=== PATIENT | male | born 1945 | race Hispanic/Latino ===

== ENCOUNTER → 2018-05-19 | Outpatient (CLI) | payer OTHER ==
--- NOTE | 2018-05-19 12:33 | Diagnostic Imaging Report ---
EXAMINATION: CHEST 2 VIEWS INDICATION: Dyspnea. COMPARISON: None FINDINGS: TUBES and LINES: None. LUNGS: Lungs are well inflated. Mild patchy bibasilar opacities. No evidence of pulmonary edema or lobar consolidation. PLEURA: No pleural effusion or pneumothorax. Mild biapical pleural-parenchymal opacity. HEART AND MEDIASTINUM: The cardiomediastinal silhouette is unremarkable. BONES AND SOFT TISSUES: No acute osseous abnormality. Degenerative changes of the visualized spine. UPPER ABDOMEN: No free air under the diaphragm. IMPRESSION: No acute radiographic abnormality. Mild patchy bibasilar opacities, likely atelectasis. Signed by: Dr. Gary Dunaway MD on 05/19/2018 12:29 PM
--- NOTE | 2018-05-19 16:20 | Diagnostic Imaging Report ---
EXAM: US ABDOMEN COMPLETE DATE: 05/19/2018 11:04 AM INDICATION: Abdominal distention COMPARISON: None FINDINGS: Grayscale and color flow Doppler ultrasound was performed. Liver: 13.5 cm span, no hepatomegaly. Mildly hyperechoic and heterogeneous parenchyma which may be seen with steatosis. No intrahepatic mass or bile duct dilatation. Main portal vein 0.7 cm, nondilated, normal hepatopetal flow. Spleen: 9.5 cm span, no splenomegaly. Biliary: No cholelithiasis or gallbladder wall thickening. There is echogenic material in the gallbladder compatible with biliary sludge. Sonographic Johnson sign negative. Common bile duct 0.3 cm, normal. Pancreas: Visualized portions show no mass or duct dilatation. Right kidney: 11.3 x 4.0 x 5.1 cm. No hydronephrosis or contour deforming mass. Normal cortical echogenicity. There is a 0.7 cm hyperechoic focus in the cortex of the mid kidney, likely representing a small cortical calcification or nonobstructing intrarenal calculus. Left kidney: 12.0 x 5.4 x 4.6 cm. No hydronephrosis or contour deforming mass. Normal cortical echogenicity. Vessels: Visualized portions of aorta and IVC unremarkable. Ascites: None IMPRESSION: 1. No cholelithiasis or evidence for cholecystitis. Mild biliary sludge is seen in the gallbladder. 2. No dilatation of the biliary tree. 3. Hepatic steatosis. 4. Small cortical calcification or nonobstructing intrarenal calculus of the right kidney. Signed by: Dr. Dung An M.D. on 05/19/2018 4:16 PM
== END ==
LOC: EDSEX 10:50 → US 10:50
PROVIDERS: ATTEND Family Medicine
DX: R06.00 Dyspnea, unspecified (principal); R14.0 Abdominal distension (gaseous)
CPT/HCPCS: 71046; 76700

== ENCOUNTER → 2018-07-10 | Outpatient (CLI) | payer MEDICARE, OTHER | LOC: RAD 15:04 | PROVIDERS: ATTEND Family Medicine | DX: M79.672 Pain in left foot (principal); M79.671 Pain in right foot; R60.9 Edema, unspecified | CPT/HCPCS: 93970 ==

== ENCOUNTER → 2020-07-25 | Outpatient (CLI) | payer MEDICARE | LOC: RAD 13:59 | PROVIDERS: ATTEND Family Medicine | DX: R07.89 Other chest pain (principal) | CPT/HCPCS: 71101 ==